=== PATIENT | male | born 1940 | race Caucasian/White ===

== ENCOUNTER 2022-06-15 11:23 | Inpatient (IN) | payer MEDICARE ==
[~2022-06-15] VITALS: Ht 177.8 cm; Wt 67.4 kg
[~2022-06-15 11:23] MED LIST: ASCO500; ASPI81CH; FERR325; FISH1000; FURO40; GLUCHON; OMEP20ER; POTCHL20ER; TRIA80TC; VALARIAN ROOT
[2022-06-15 11:57] LABS: BASOPHILS ABSOLUTE AUTO 0.05 K/mm3 (0.00-0.23); BASOPHILS PERCENT AUTO 1 % (0-2); EOSINOPHILS ABSOLUTE AUTO 0.16 K/mm3 (0.00-0.68); EOSINOPHILS PERCENT AUTO 2 % (0-6); IMMATURE GRAN ABSOLUTE AUTO 0.03 K/mm3 (0.00-0.10); IMMATURE GRAN PERCENT AUTO 0 % (0-1); LYMPHOCYTES ABSOLUTE AUTO 1.11 K/mm3 (0.84-5.20); LYMPHOCYTES PERCENT AUTO 17 % (21-46); MONOCYTES ABSOLUTE AUTO 0.49 K/mm3 (0.16-1.47); MONOCYTES PERCENT AUTO 7 % (4-13); Mean Corpuscular HGB 34.1 pg (26.0-34.0); Mean Corpuscular Volume 110 fL (80-100); Mean Platelet Volume 11.7 fL (9.1-12.4); NEUTROPHILS ABSOLUTE AUTO 4.84 K/mm3 (1.96-9.15); NEUTROPHILS PERCENT AUTO 73 % (41-73); Platelet Count 102 K/mm3 (150-400); RDW Standard Deviation 55.8 fL (35.1-46.3); Red Blood Cell Count 2.64 M/mm3 (4.30-5.90); White Blood Cell Count 6.68 K/mm3 (4.00-11.30)
[2022-06-15 12:29] LABS: Magnesium, Blood 3.1 mg/dL (1.6-2.4)
[2022-06-15 12:30] LABS: Thyroid Stimulating Hormone 4.86 uIU/mL (0.360-4.800)
[2022-06-15 12:52] LABS: Albumin, Blood 3.5 g/dL (3.4-5.0); Albumin/Globulin Ratio 1.3 (0.8-1.8); Bilirubin, Total 0.6 mg/dL (0.1-1.0); Bun/Creatinine Ratio 14.9 (12.0-20.0); Calcium, Blood 8.9 mg/dL (8.5-10.1); Creatinine, Blood 12.2 mg/dL (0.60-1.20); Globulin, Blood 2.6 g/dL (2.2-4.0); Potassium, Blood 5.6 mmol/L (3.5-5.5); Total Protein, Blood 6.1 g/dL (6.4-8.2)
[2022-06-15 12:57] LABS: Influenza A, PCR NEGATIVE (NEGATIVE); Influenza B, PCR NEGATIVE (NEGATIVE); Resp Syncytial Virus, PCR NEGATIVE (NEGATIVE); SARS-Cov-2 (COVID-19) PCR, MMC NEGATIVE (NEGATIVE)
[2022-06-15] MEDS ORDERED: ASPI81CH PO (16:18)
[2022-06-15 17:12] LABS: PCO2 Venous 22.5 mmHg (38-42); pH Blood Venous 7.07 (7.34-7.37)
[2022-06-15 17:13] LABS: Base Excess Venous -23.5 mmol/L; Bicarbonate Venous 8.6 mmol/L (24.0-30.0)
--- NOTE | 2022-06-15 18:39 | NUR ---
SHIFT SUMMARY PT ARRIVED TO THE FLOOR FROM ER WITH FAMILY AT BEDSIDE, PHYSICAL EXAMINATION UNREMARKABLE THOUGH HE DID HAVE A MODERATE AMT BLOOD LOS AFTER RAC IV WAS REMOVED (NOT PATENT), PT HAD SEVERAL LAB DRAWS IN WHICH HE TOLERATED WELL. FAMILY REMAINS AT BEDSIDE, FLUIDS INFUSING, NO ACUTE EVENTS THIS SHIFT, CALL LIGHT IN REACH, WILL CTM AND REPORT TO ONCOMING JOSHUA RN.
[2022-06-15 19:28] LABS: Uric Acid, Blood 9.4 mg/dL (3.5-7.2)
[2022-06-15 19:32] LABS: Phosphorus, Blood 11.4 mg/dL (2.5-4.9)
--- NOTE | 2022-06-15 19:40 | NUR ---
1930: CRITICAL LAB LACTIC 4.5 AND PHOS 11.4 REPORTED TO PROVIDER. WILL REPEAT LACTIC AT 2200 WITH [facility]. AND WILL PROVIDE UPDATE TO PROVIDER SOON RESULTS COME BACK.
[2022-06-15 22:10] LABS: Base Excess Venous -19.1 mmol/L; PCO2 Venous 27.8 mmHg (38-42)
[2022-06-15 22:11] LABS: pH Blood Venous 7.15 (7.34-7.37)
--- NOTE | 2022-06-15 22:57 | NUR ---
2250: LACTIC ACID 4.2 AND [facility] PH 7.15 - CRITICAL LABS CALLED BY SABINO FROM LAB. CALLED THE PROVIDER NOTIFIED OF THE RESULTS. NO INTERVENTION AT THIS TIME BUT WILL CONTINUE TO MONITOR. PT IS STILL LETHARGIC, NOT CHANGE SINCE ADMISSION. ABLE TO ANSWER QUESTION AND RESPONDS APPROPRIATELY. VITALS STABLE 119/46 BP, HR AT 73, RR 16, AND O2 SAT AT 98% ON ROOM AIR. PT IS CURRENTLY SLEEPING AT THIS TIME.
[2022-06-16 04:15] LABS: Albumin, Blood 3.1 g/dL (3.4-5.0); Anion Gap 17 mmol/L (6-16); Blood Urea Nitrogen 169 mg/dL (8-24); Bun/Creatinine Ratio 13.4 (12.0-20.0); CO2, Blood 12 mmol/L (21-32); Calcium, Blood 8.7 mg/dL (8.5-10.1); Chloride, Blood 111 mmol/L (98-108); Glomerular Filtration Rate 4 (60-); Glucose, Blood 158 mg/dL (70-99); Phosphorus, Blood 10.1 mg/dL (2.5-4.9); Potassium, Blood 3.8 mmol/L (3.5-5.5); Sodium, Blood 140 mmol/L (136-145)
--- NOTE | 2022-06-16 04:43 | NUR ---
SHIFT SUMMARY PT AOX3. FORGETFUL AT TIMES BUT EASILY REORIENTED. PT REPORTS SOME CHILLS AT THE BEGINNING OF SHIFT. C/O OF BLE MUSCLE SPASM BUT IMPROVED THIS MORNING. TOLERATING PO INTAKE, POOR APPETITE. DENIES N/V. CRITICAL LABS REPORTED TO PROVIDER, SEE NURSE NOTES. BEDREST. ABLE TO REPOSITIONED HIMSELF WITH MIN ASSIST. VSS. PT ON RA. DENIES CHEST PAIN AND SOB. REPORTS SOME MILD H/A THIS MORNING. POWERGLIDE PLACED ON MARIELENA. IV ON R AC. BICARB INFUSING AT 100MLS/HR. CALL LIGHT WITHIN REACH. PT HAD VOIDED TWICE T/O SHIFT WITH TOTAL URINE OUTPUT OF 250 MLS. UA SENT TO LAB. WILL GIVE REPORT TO ONCOMING NURSE. CALL LIGHT WITHIN REACH.
--- NOTE | 2022-06-16 18:29 | NUR ---
SHIFT SUMMARY PT A&OX4. [place], HEARING AIDES BROUGHT TO BEDSIDE THIS AFTERNOON. SP02>90% ON RA, LUNGS WHEEZY. TELEMETRY V PACED, HR MOSTLY 70'S-80'S. VSS. PT USED URINAL TO VOID, MINIMAL OUTPUT THIS SHIFT. NO BM. PT TO [facility] FOR PERM CATH PLACEMENT W/ MD COCHRAN THIS AFTERNOON. PT WENT TO DIALYSIS DIRECTLY FROM [facility] APPROX 1530. STILL CURRENTLY IN DIALYSIS. FAMILY AND BEST FRIEND AT BEDSIDE THIS AFTERNOON. CALL LIGHT IN REACH.
--- NOTE | 2022-06-16 19:30 | NUR ---
TRANSFERRED PATIENT FROM DIALYSIS. PATIENT IS ALERT TO SELF/PLACE. VSS STABLE.
[2022-06-17 03:59] LABS: Hematocrit 21.8 % (37.0-53.0); Hemoglobin 7.7 g/dL (13.5-17.5)
[2022-06-17 06:38] LABS: Albumin, Blood 2.8 g/dL (3.4-5.0); Anion Gap 12 mmol/L (6-16); Blood Urea Nitrogen 89 mg/dL (8-24); Bun/Creatinine Ratio 11.4 (12.0-20.0); CO2, Blood 22 mmol/L (21-32); Calcium, Blood 8.3 mg/dL (8.5-10.1); Chloride, Blood 104 mmol/L (98-108); Creatinine, Blood 7.84 mg/dL (0.60-1.20); Glomerular Filtration Rate 6 (60-); Glucose, Blood 107 mg/dL (70-99); Potassium, Blood 4.5 mmol/L (3.5-5.5); Sodium, Blood 138 mmol/L (136-145)
[2022-06-17 06:45] LABS: Phosphorus, Blood 6.9 mg/dL (2.5-4.9)
--- NOTE | 2022-06-17 07:09 | NUR ---
PATIENT A&O X2. GENERALIZED WEAKNESS. PERMACATH SITE INTAKE MINIMAL DRAINAGE.
[2022-06-17 07:11] LABS: HBSAG SCREEN Negative (Negative); HCV ANTIBODY Non Reactive (Non Reactive); HEP B SURFACE AB Non Reactive (.)
[2022-06-17 11:31] LABS: Percent Saturation 29.8 % (20.0-50.0)
--- NOTE | 2022-06-17 13:50 | NUR ---
transfer pt alert, oriented to self, situation this am. vss. Perm cath in r upper chest. bandage noted w/ dark red around site. not visibly oozing. MD Jacobo in room for morning rounds. pt changed to medical status, no tele. pt to dialysis this am. back to room approx 1300. vss. wheezing noted in r lung. pt states he takes inhalers at home. call placed to respiratory therapy. call placed to md jacobo. MD Jacobo w/ orders for breathing tx prn. Received breathing tx from RT. Report given to medical floor nurse. hydraulic technician currently in room w/ ultrasound, then will xfer pt to room 338. Talib Cantu, called and updated about transfer.
--- NOTE | 2022-06-17 14:50 | NUR ---
TRANSFER NOTE: PT ARRIVED FROM PCU AT 1445, REPORT RECEIVED FROM ROSE HASKINS RN. CALL LIGHT PLACED WITHIN REACH AND BED IN LOWEST POSITION.
[2022-06-17 18:06] LABS: ANA DIRECT Negative (Negative); ANTI-DNA (DS) AB QN <1 IU/mL (0-9); RNP ANTIBODIES <0.2 AI (0.0-0.9); SJOGREN'S ANTI-SS-A <0.2 AI (0.0-0.9); SJOGREN'S ANTI-SS-B <0.2 AI (0.0-0.9); SMITH ANTIBODIES <0.2 AI (0.0-0.9)
--- NOTE | 2022-06-18 04:22 | NUR ---
SHIFT SUMMARY PATIENT HAD NO ACUTE CHANGES. AXOX 3, GRAND TRAVERSE, AND BEDREST. POWERGLIDE [place] INTACT. PERMACATH RU CHEST INTACT. REPORTS DIALYSIS TODAY 06/18. USES URINAL AT BEDSIDE. VSS/AFEBRILE. DENIES CHEST PAIN, SOB, AND N/V. SLEPT MOST OF THE SHIFT. CALL LIGHT IN REACH. BED IN LOWEST POSITION. WILL CONTINUE TO MONITOR UNTIL DAY SHIFT NURSE ASSUMES CARE.
[2022-06-18 06:17] LABS: Albumin, Blood 2.9 g/dL (3.4-5.0); Anion Gap 8 mmol/L (6-16); Blood Urea Nitrogen 48 mg/dL (8-24); Bun/Creatinine Ratio 9.9 (12.0-20.0); CO2, Blood 29 mmol/L (21-32); Calcium, Blood 8.3 mg/dL (8.5-10.1); Chloride, Blood 99 mmol/L (98-108); Creatinine, Blood 4.84 mg/dL (0.60-1.20); Glomerular Filtration Rate 11 (60-); Glucose, Blood 107 mg/dL (70-99); Phosphorus, Blood 5.5 mg/dL (2.5-4.9); Potassium, Blood 3.9 mmol/L (3.5-5.5); Sodium, Blood 136 mmol/L (136-145)
[2022-06-18 13:31] LABS: Hematocrit 23.4 % (37.0-53.0); Hemoglobin 7.7 g/dL (13.5-17.5); Mean Corpuscular HGB 34.2 pg (26.0-34.0); Mean Corpuscular HGB Conc 32.9 g/dL (31.5-36.5); Mean Corpuscular Volume 104 fL (80-100); Mean Platelet Volume 11.9 fL (9.1-12.4); Platelet Count 87 K/mm3 (150-400); RDW Coefficient Variation 14.5 % (11.7-14.2); RDW Standard Deviation 55.1 fL (35.1-46.3); Red Blood Cell Count 2.25 M/mm3 (4.30-5.90); White Blood Cell Count 5.16 K/mm3 (4.00-11.30)
--- NOTE | 2022-06-18 18:00 | NUR ---
NOTE: PT HAS NOT HAD ANY URINE OUTPUT TODAY. NOTIFIED DR. STEELE AND HE SAID "OKAY". WILL PASS ON TO FLOOR ATTENDANT NURSE.
--- NOTE | 2022-06-18 18:01 | NUR ---
SHIFT SUMMARY PT AOX3 TODAY, RECEIVED DIALYSIS TREATMENT TODAY. DIALYSIS NURSE SAID HE TOLERATED IT WELL. PT WORKED WITH PT TODAY AND THEY SAID HE TOLERATED IT WELL. HE HAS HAD NO C/O N/V/P/CP/SOB. HE IS CURRENTLY ON 3 L NC. PLAN IS FOR HIM TO GO TO REHAB AND CONTINUE DIALYSIS AFTER DISCHARGE. FAMILY HAS VISITED AT THE BS TODAY. WILL REPORT TO ONCOMING NURSE.
[2022-06-19 00:07] LABS: HBSAG SCREEN Negative (Negative); HCV AB Non Reactive (Non Reactive); HEP A AB, IGM Negative (Negative); HEP B CORE AB, IGM Negative (Negative)
--- NOTE | 2022-06-19 06:38 | NUR ---
SHIFT SUMMARY NOC PT A/O X 3. PLEASANT AND COOPERATIVE WITH CARE. PT HAD DIALYSIS 0N 06/18/22. PT HGB WAS 7.7 YESTERDAY AND AWAITING AM LABS. PT HAS PC IN RUCW AND PT HAS PG IN YANI[place] THAT DRAWS. PT ON TELE RUNNING AFIB @ 58 BPM. PT IS CURRENTLY RESTING WITH BED ALARM ON BED IN LOWEST POSITION, AND CALL LIGHT WITHIN REACH.
[2022-06-19 13:11] LABS: ANTIMYELOPEROXIDASE (MPO) ABS <0.2 units (0.0-0.9); ANTIPROTEINASE 3 (PR-3) ABS <0.2 units (0.0-0.9); ATYPICAL PANCA <1:20 titer (Neg:<1:20); CYTOPLASMIC (C-ANCA) <1:20 titer (Neg:<1:20); PERINUCLEAR (P-ANCA) <1:20 titer (Neg:<1:20)
[2022-06-19 15:11] LABS: A/G RATIO 1.8 (0.7-1.7); ALBUMIN 3.4 g/dL (2.9-4.4); ALPHA-1-GLOBULIN 0.3 g/dL (0.0-0.4); ALPHA-2-GLOBULIN 0.5 g/dL (0.4-1.0); BETA GLOBULIN 0.7 g/dL (0.7-1.3); GAMMA GLOBULIN 0.5 g/dL (0.4-1.8); GLOBULIN, TOTAL 1.9 g/dL (2.2-3.9); M-SPIKE 0.2 g/dL (Not Observed); PROTEIN, TOTAL, SERUM 5.3 g/dL (6.0-8.5)
[2022-06-19 17:19] LABS: SARS-Cov-2 (COVID-19) PCR, MMC NEGATIVE (NEGATIVE)
[2022-06-19 17:31] LABS: Anion Gap 5 mmol/L (6-16); Blood Urea Nitrogen 33 mg/dL (8-24); Bun/Creatinine Ratio 8.8 (12.0-20.0); CO2, Blood 31 mmol/L (21-32); Calcium, Blood 8.3 mg/dL (8.5-10.1); Chloride, Blood 102 mmol/L (98-108); Creatinine, Blood 3.77 mg/dL (0.60-1.20); Glomerular Filtration Rate 15 (60-); Glucose, Blood 100 mg/dL (70-99); Magnesium, Blood 2.2 mg/dL (1.6-2.4); Phosphorus, Blood 3.9 mg/dL (2.5-4.9); Sodium, Blood 138 mmol/L (136-145)
--- NOTE | 2022-06-19 17:34 | NUR ---
SHIFT SUMMARY PT IS A&O X3. PT'S MOOD IS FLAT. PT IS CURRENTLY TOLERATING DIET. 1X FWW TO BEDSIDE CHAIR. PT IS PRODUCING MINIMAL AMOUNTS OF JEFF[place]Y COLORED URINE. PT LYING IN BED IN LOWEST POSITION WITH CALL LIGHT IN REACH. OXYGEN DECREASED FROM 3L TO RA. VITAL SIGNS WITHIN NORMAL LIMITS. NO DIALYSIS TODAY. PT HAS BEEN RESTING IN BED THROUGHOUT SHIFT.
--- NOTE | 2022-06-20 05:04 | NUR ---
SHIFT SUMMARY NOC PT A/O X 3. PLEASANT AND COOPERATIVE WITH CARE. PT LABS YESTERDAY DID NOT COME THROUGH DUE TO MALFUNCTION WITH LAB EQUIPMENT. PT HGB WAS 7.7 ON 06/18/22 AND [place] AM LABS AND NOW AWAITING RESULTS. PT IS ON RA NOW. PT IS ALSO WAITING ON RESULTS OF RENAL PANEL AND CBC FOR POSSIBLE DISHCARGE TO SNF FACILITY. PT IS CURRENTLY RESTING WITH BED IN LOWEST POSITION AND CALLL LIGHT WITHIN REACH.
[2022-06-20 05:31] LABS: Albumin, Blood 2.9 g/dL (3.4-5.0); Anion Gap 6 mmol/L (6-16); Blood Urea Nitrogen 43 mg/dL (8-24); Bun/Creatinine Ratio 8.8 (12.0-20.0); CO2, Blood 30 mmol/L (21-32); Calcium, Blood 8.3 mg/dL (8.5-10.1); Chloride, Blood 99 mmol/L (98-108); Creatinine, Blood 4.91 mg/dL (0.60-1.20); Glomerular Filtration Rate 11 (60-); Glucose, Blood 113 mg/dL (70-99); Phosphorus, Blood 3.9 mg/dL (2.5-4.9); Potassium, Blood 4.2 mmol/L (3.5-5.5); Sodium, Blood 135 mmol/L (136-145)
[2022-06-20 08:24] LABS: Hematocrit 22.7 % (37.0-53.0); Hemoglobin 7.1 g/dL (13.5-17.5)
[2022-06-20 14:11] LABS: M-SPIKE, % 20.9 % (Not Observed); PROTEIN,TOTAL,URINE 149.3 mg/dL (Not Estab.)
--- NOTE | 2022-06-20 16:04 | NUR ---
1535 MD STEELE NOTIFIED OF PT'S SOB AND LOW DIASTOLIC BP'S. AWARE.
--- NOTE | 2022-06-20 18:30 | NUR ---
PT AAOX3 THIS SHIFT, CALM AND COOPERATIVE THIS SHIFT. PT HAD 1 EPISODE OF SOB THAT WAS RELEIVED WITH 2 L O2.
--- NOTE | 2022-06-21 04:56 | NUR ---
SHIFT SUMMARY; NO ACUTE CHANGES OVERNIGHT. THE PT IS AXO X4 AND STANDBY ASSIST TO THE BSC. THE PT WAS WHEEZY AFTER RETURNING FROM DIALYSIS YESTERDAY, PT STILL HAS INTERMITTEN WHEEZING EXACERBATED BY ACTIVITY. 2L NC IN PLACE, O2 SATS GREATER THAN 90%. THE PT REQUESTED PRN TYLENOL ONCE LAST NIGHT FOR A HEADACHE, BUT THE PT OTHERWISE DENIES ANY PAIN. THE PT DENIES ANY SOB, CHEST PAIN/PRESSURE OR N/V T/O THE NIGHT. CURRENTLY THE PT IS RESTING IN BED WITH THE BED IN THE LOWEST POSITION AND THE CALL LIGHT IS AT BEDSIDE.
[2022-06-21 10:43] LABS: Hematocrit 22.3 % (37.0-53.0); Hemoglobin 7.1 g/dL (13.5-17.5)
--- NOTE | 2022-06-21 18:12 | NUR ---
SHIFT SUMMARY: PT A/O X 3, ONE ASSIST WITH GB/WALKER. PT HAD NO COMPLAINTS THROUGHOUT THE DAY TODAY. PT WORKED WITH PT TODAY AND GOT UP AND AMBULATED TO DOOR AND BACK. HGB 7.1 WHICH WAS THE SAME YESTERDAY. PT IS ASYMPTOMATIC. PER GAS PIPE LAYER PT IS SCHEDULED TO HAVE DIALYSIS ON THURSDAY UNLESS SOMETHING CHANGES.
--- NOTE | 2022-06-22 04:28 | NUR ---
SHIFT SUMMARY; NO ACUTE CHANGES OVERNIGHT. THE PT SLEPT FOR THE ENTIRETY OF THE NIGHT. THE PT IS AXO X3 AND A STANDBY ASSIST. THE PT HAD SOME WEAKNESS WHEN TRANSFERING FROM THE BEDSIDE CHAIR TO THE BED. 2L NC IS IN PLACE, THE PT HAS INTERMITTEN PERIODS OF SOB FOLLOWED BY WHEEZING, EXCERBATED BY ACTIVITY. LAYING IN BED AT REST THE PT IS NOT SOB, NOR WHEEZY. THE PT DENIES ANY PAIN, CHEST PAIN/PRESSURE OR N/V. CURRENTLY THE PT IS SLEEPING IN BED WITH THE BED IN THE LOWEST POSITION AND THE CALL LIGHT AT BEDSIDE.
[2022-06-22 05:06] LABS: Hematocrit 23.2 % (37.0-53.0); Hemoglobin 7.3 g/dL (13.5-17.5)
[2022-06-22 05:38] LABS: Albumin, Blood 3.1 g/dL (3.4-5.0); Anion Gap 9 mmol/L (6-16); Blood Urea Nitrogen 46 mg/dL (8-24); Bun/Creatinine Ratio 10.9 (12.0-20.0); CO2, Blood 27 mmol/L (21-32); Calcium, Blood 8.6 mg/dL (8.5-10.1); Chloride, Blood 96 mmol/L (98-108); Creatinine, Blood 4.21 mg/dL (0.60-1.20); Glomerular Filtration Rate 14 (60-); Glucose, Blood 102 mg/dL (70-99); Phosphorus, Blood 3.6 mg/dL (2.5-4.9); Potassium, Blood 4.2 mmol/L (3.5-5.5); Sodium, Blood 132 mmol/L (136-145)
--- NOTE | 2022-06-22 18:52 | NUR ---
SHIFT SUMMARY: PT A/O X 4, ONE ASSIST W/GB/WALKER. PT HAD UNEVENTFUL DAY TODAY. NO DIALYSIS THIS AM AND PLAN FOR TOMORROW MORNING. PT HAD HEADACHE THIS AM WHICH TYLENOL WAS EFFECTIVE IN TREATING. PT HAS SOFT BP'S BUT IS ASYMPTOMATIC. LS ARE DIMINISHED AND IS ON 3 LPM VIA NC.
--- NOTE | 2022-06-23 05:00 | NUR ---
SHIFT SUMMARY 81 YR M ADMITTED ON 06/15/22 FOR ARF. FULL CODE. NO ACUTE CHANGES THIS SHIFT. NO C/O PAIN OR DISCOMFORT THIS SHIFT. BP IS STILL SOFT. PLAN IS FOR DIALYSIS TODAY. PT HAS SLEPT FOR MOST OF THIS SHIFT AND APPEARS TO BE COMFORTABLE.
[2022-06-23 11:47] LABS: SARS-Cov-2 (COVID-19) PCR, MMC NEGATIVE (NEGATIVE)
[2022-06-23] MEDS ORDERED: Acetaminophen650 M1 PO (14:05)
[2022-06-23] MEDS ORDERED: ALBU2.5V5 INH (14:06)
[2022-06-23] MEDS ORDERED: Colace100 MG PO (14:07)
[2022-06-23] MEDS ORDERED: FLUT.05NI (14:07)
[2022-06-23] MEDS ORDERED: Benadryl Itch28.3 G1 TOP (14:07)
[2022-06-23] MEDS ORDERED: ONDA4ODT MM (14:07)
[2022-06-23] MEDS ORDERED: SENN187 PO (14:08)
--- NOTE | 2022-06-23 16:52 | NUR ---
DISCHARGE PATIENT TRANSPORTED VIA WHEELCHAIR BY [facility]. PATIENT DISCHARGING TO [facility]. [facility] BELONGINGS SENT WITH PATIENT AND FAMILY. IV REMOVED WITHOUT DIFFICULTY. MEDICATIONS FAXED TO [facility]. FACILITY TO SCHEDULE FOLLOW UP APPOINTMENT. REPORT GIVEN TO SOLOMON SANTAMARIA RN. INFORMED OF DIALYSIS SCHEDULE AND INTAKE TOMORROW.
== END 2022-06-23 16:49 | DRG 674 ==
LOC: ER 11:23 → PCU 14:04 → MEDS 06-17 14:39
PROVIDERS: Internal Medicine; Internal Medicine Nephrology; Nurse Practitioner Acute Care; Student in an Organized Health Care Education/Training Program; ADMIT Internal Medicine
PROC: 0JH63XZ Insertion of Tunneled Vascular Access Device into Chest Subcutaneous Tissue and Fascia, Percutaneous Approach (ICD-10-PCS; principal; 2022-06-16)
PROC: 02HV33Z Insertion of Infusion Device into Superior Vena Cava, Percutaneous Approach (ICD-10-PCS; 2022-06-16)
PROC: B5181ZA Fluoroscopy of Superior Vena Cava using Low Osmolar Contrast, Guidance (ICD-10-PCS; 2022-06-16)
DX: N17.9 Acute kidney failure, unspecified (principal); E44.1 Mild protein-calorie malnutrition; E87.20 Acidosis, unspecified; I48.20 Chronic atrial fibrillation, unspecified; I13.2 Hypertensive heart and chronic kidney disease with heart failure and with stage 5 chronic kidney disease, or end stage renal disease; I69.354 Hemiplegia and hemiparesis following cerebral infarction affecting left non-dominant side; R64 Cachexia; E87.5 Hyperkalemia; Z74.01 Bed confinement status; Z20.822 Contact with and (suspected) exposure to COVID-19; Z28.21 Immunization not carried out because of patient refusal; D63.1 Anemia in chronic kidney disease; N18.6 End stage renal disease; I25.10 Atherosclerotic heart disease of native coronary artery without angina pectoris; R77.8 Other specified abnormalities of plasma proteins; I50.9 Heart failure, unspecified; I69.392 Facial weakness following cerebral infarction; Z68.20 Body mass index [BMI] 20.0-20.9, adult; E83.41 Hypermagnesemia; Z87.891 Personal history of nicotine dependence; Z95.1 Presence of aortocoronary bypass graft; Z95.0 Presence of cardiac pacemaker; Z98.890 Other specified postprocedural states; Z88.8 Allergy status to other drugs, medicaments and biological substances; Z79.899 Other long term (current) drug therapy
CPT/HCPCS: 0241U; 36415; 36558; 51798; 70450; 71045; 76770; 76937; 77001; 80048; 80053; 80069; 80074; 82306; 82550; 82570; 82728; 82803; 82947; 83516; 83520; 83540; 83550; 83605; 83615; 83735; 83880; 83970; 84100; 84156; 84165; 84166; 84439; 84443; 84484; 84550; 85014; 85018; 85025; 85027; 86037; 86225; 86235; 86317; 86704; 86803; 87340; 93005; 93010; 93306; 94640; 94644; 94664; 94760; 96365; 96366; 96375; 97110; 97116; 97162; 97530; 99152; 99153; 99285-25; A9270; C1750; C1751; C1769; C1894; J0610; J1644; J1815; J2250; J2405; J3010; J7030; J7070; J7799; P9047; Q5106; U0004